=== PATIENT | female | born 1995 | race African-American/Black ===

== ENCOUNTER → 2017-09-13 | Outpatient (CLI) | payer OTHER | END | disposition home or self-care (01) | LOC: US 08:16 | DX: E04.1 Nontoxic single thyroid nodule (principal) | CPT/HCPCS: 76536 ==

== ENCOUNTER → 2017-10-10 | Outpatient (CLI) | payer OTHER ==
--- NOTE | 2017-10-10 11:10 | RAD ---
Ultrasound-guided left thyroid biopsy, 10/10/2017: History: Complex left thyroid nodule Under local anesthesia, aseptic conditions and sonographic guidance a 25-gauge needle was passed into the left thyroid nodule via an anteromedial approach. We targeted primarily the peripheral solid components of this nodule. 4 separate aspirates were obtained in this manner with the material sent to pathology for evaluation. Hemostasis was then obtained. The patient tolerated the procedure well and left the department in good condition. The pathology results are pending.
--- NOTE | 2017-10-15 17:08 | PATHOLOGY ---
Note [facility] Accession Number: [id number] TESTS RESULT FLAG UNITS REF RANGE LAB Clinician Provided Cytology Information No. of containers..01 Other (Miscellaneous) Source: LEFT THYROID DIAGNOSIS: LEFT THYROID NEGATIVE FOR MALIGNANT CELLS. [place] CATEGORY II. SPECIMEN CONSISTS OF BENIGN FOLLICULAR CELLS, HEMOSIDERIN-LADEN MACROPHAGES, COLLOID, AND BLOOD. THIS PATTERN IS CONSISTENT WITH A COLLOID NODULE. THIS INTERPRETATION INCLUDES EVALUATION OF A CELL BLOCK. Pathologist ICD10: 02 E04.1 Signed out by: 02 Eh Odom MD, Pathologist NPI- [id number] Performed by: Radha Marrero, Professor Of Chemistry ([facility]) Gross description: 01 30ML, RED, CLOUDY /LCS FLAG LEGEND: L-Low Normal,H-High Normal,LL-Alert Low,HH-Alert High <-Panic Low,>-Panic High,A-Abnormal,AA-Critical Abnormal Performed at: [address] [place] [address] Bill Diallo MD, 02 [facility] [address] [place] [address] Eh Odom MD, A duplicate report has been generated due to demographic updates. Performed at: [address], [place], [place] [id number] MD Bill Diallo MD Phone: [phone]
== END | disposition home or self-care (01) ==
LOC: US 09:34
PROVIDERS: ATTEND Family Medicine
DX: E04.1 Nontoxic single thyroid nodule (principal)
CPT/HCPCS: 10022; 60300; 76942; 88173; 88305